=== PATIENT | female | born 1980 | race Caucasian/White ===

== ENCOUNTER → 2017-05-04 | Day surgery (SDC) | payer OTHER ==
[~2017-05-04] VITALS: Ht 165.1 cm; Wt 83.9 kg
[~2017-05-04] MED LIST: CETI10CA PO; Lactated Ringer's 1,000 ML IV SCH; MetoCLOpramide 5 mg/mL 2 mL Inj IVPUSH PRN; Ondansetron 2 mg/mL 2 mL Inj IVPUSH PRN; Propofol 10,000 mCg/mL 20 mL Inj ONE; RANI150T11 PO; SERT25TA2 PO; Sodium Chloride LOK Flush 10 mL Syringe IV PRN; fentaNYL-PF 50 mCg/mL 2 mL Inj IVPUSH PRN
[2017-05-04 09:21] VITALS: BP 122/69; PULSE 65; RESP 16; O2SAT 95
[2017-05-04] MEDS: 0.9% Sodium Chloride 1,000 ML IV SCH ×2 (09:24→09:46)
[2017-05-04 10:27] VITALS: BP 80/42; PULSE 72; RESP 12; O2SAT 96
--- NOTE | 2017-05-04 10:28 | PCM.HPANE ---
Patient Data Surgeon Admitting Provider: Attending Provider:Yasmany Griffith MD Primary Care Physician:Tessie Martinez ARNP Other Provider: Reason for Visit Diarrhea, Gerd Ht/WT & BMI Height (Feet): 5 Height (Inches): 5 Weight (Kilograms): 83.91 Body Mass Index 30.00 Allergies Coded Allergies: oxycodone (Verified Allergy, Severe, FACIAL SWELLING, 05/04/17) tetracycline (Verified Allergy, Severe, rash, 11/30/10) Penicillins (Verified Allergy, Mild, hives, 05/02/17) hydrocodone (Verified Allergy, Mild, ITCH, 05/04/17) hydromorphone (Verified Adverse Reaction, Intermediate, VOMIT, 05/04/17) Past Anesthesia History Anesthesia History: Denies:: Abnormal Airway, Anesthesia Reactions, Difficult Intubation, Fam Anesthesia Reaction, Fam Malignant Hypertherm, Malignant Hyperthermia Diabetes History Hx Diabetes?: No MRSA MRSA: No Medications Hypertension Medication: No Home Meds Incl Beta Jan: No Reported Medications Ranitidine (Zantac)150 Mg [id number] Mg PO DAILY 05/02/17 Sertraline HCl (Zoloft)25 Mg [id number] Mg PO DAILY 30 Days Ref 0 05/02/17 Cetirizine HCl (Zyrtec)10 Mg [id number] Mg PO HS #30 CAPSULE Ref 0 10/02/15 History History of ENT Problems?: Yes HEENT History: Positive for:: Sinus Problem (allergies/stuffy) Denies:: Abnormal Airway Cataracts Difficult Intubation Dysphagia Hearing Problem Denture Type: None Teeth Condition: Within Normal Limits Hx of Heart Problems?: No Cardiovascular History: Positive for:: Heart Murmur Hx of Respiratory Problem?: No Respiratory History: Positive for:: Asthma (rare) Hx Neurologic Problems?: Yes Neurological History: Positive for:: Headaches (from back) Denies:: CVA Hx of GI Problems?: Yes Other GI Pertinent History: MOTHER HAD RENAL CELL CARCINOMA Hx of Problems?: Yes Genitourinary History: Positive for:: Urinary Tract Infection HX of Peritoneal Dialysis: No Female Hx: Denies:: Currently Skin History: Denies:: History Skin Disorders? Hx Musculoskeletal Problems?: Yes Musculoskeletal History: Positive for:: Musculoskeletal Trauma Denies:: Fibromyalgia Joint Replacement Hx of Psycho/Social Problems?: No Psycho Social History: Positive for:: Anxiety Hx Depression Hx Surgeries?: Yes (ARLETH) Hx Any Other Health Problems?: Yes Other History: Denies:: Cancer Endocrine Disease Hospitalization Thyroid Disease History Blood Transfusions: Denies:: Blood Transfusions Hx Diabetes: No Hx Alcohol Use: NoHx Substance Use: No Smoking Status: Unknown if Ever Smoker Stop/Bang Treated for Sleep Apnea?: No Do You Have a CPAP Machine?: No S-Snoring: Do You Snore Loudly: No T-Tired: feel tired, fatigued: No O-Obsered: Observed not breath: No P-Blood Pressure: treated: No B- Body Mass Index > 35 kg/m2: No A- Age over 50: No N- Neck Large Circumference: No G- Gender Male: No PORTILLO Total Score: 0 PORTILLO Risk Assessment: Low Risk, <3 Yes Risk Assessment Category Category 1A: Patient has history of documented sleep apnea, and HAS NOT received any narcotic, sedative or anesthesia administration during this stay. Category 1B: Patient has history of documented sleep apnea, and HAS received any narcotic , sedative or anesthesia administration during this stay Category 2: Patient has SUSPECTED Obstructive Sleep Apnea, and HAS received any narcotic , sedative or anesthesia administration during this stay. Category 3: Patient has SUSPECTED Obstructive Sleep Apnea and HAS NOT received narcotic, sedative or anesthesia administration during this stay. Category 4: Outpatient in Procedural Areas with known sleep apnea or who screen positive for High Risk via the STOP/BANG questionnaire. Exam Exam Vital Signs Vital Signs Date Time Temp Pulse Resp B/P Pulse Ox O2 Delivery O2 Flow Rate FiO2 05/04/17 09:21 65 16 122/69 95 Room Air General Appearance: Alert, Oriented X3, Cooperative, No Acute Distress HEENT/AIRWAY: MP 2 Lungs: Clear to Auscultation, Normal Air Movement Heart: Exam Unremarkable, Regular Rate/Rhythm, No Murmurs/Rubs/Gallops Meds/Labs/Diagnostics Admission Meds Current Medications Sodium Chloride (Normal Saline) 1,000 ml @ 10 mls/hr Q24H IV Last administered on 05/04/17t 09:46; Start 05/04/17 at 06:00 Plan Impression Patient chart reviewed, patient interviewed and anesthestic plan with risks, benefits, and alternatives discussed, and informed consent obtained. ASA Physical Status: ASA1 Normal Healthy Anesthetic Plan: MAC Bene/Risks/Altern/Consents: Yes HP Complete Prior to Induction: Yes Other Called by dr griffith for rescue sedation after patient was unable to tolerate Endoscope for EGD after 7 mg of midazolam. Pt awake and able to sign consent. Ricardo Otoole MD May 04, 2017 10:27
--- NOTE | 2017-05-04 10:32 | PCM.ANEP1 ---
Post Anesthesia PACU Phase 1 Assessment Vital Signs Vital Signs Date Time Temp Pulse Resp B/P Pulse Ox O2 Delivery O2 Flow Rate FiO2 05/04/17 09:21 65 16 122/69 95 Room Air Anesthetic Administered: MAC Level of Alertness: Sleepy, easy to arouse WILSON's with Equal Strength: Yes Pain: No Nausea or Vomiting: No CV Function & Hydration Stable: Yes Airway Device: none Lungs: Clear to Auscultation, Normal Air Movement Dermatome Level: Full Sensation PACU Phase 2 Assessment Complications: No Follow up Care: No Patient Instructions Provided: N/A Ricardo Otoole MD May 04, 2017 10:32
[2017-05-04 10:38] VITALS: BP 94/51; PULSE 64; RESP 12; O2SAT 100
[2017-05-04 10:49] VITALS: BP 104/56; PULSE 59; RESP 12; O2SAT 100
--- NOTE | 2017-05-05 08:51 | ENDO ---
[address] [address] ENDOSCOPY PROCEDURE PATIENT: CHAGO ARCOS : 1980 MR#: [id number] ADMIT: 05/04/2017 JOB ID: [id number] DATE OF SERVICE: 05/04/2017 OPERATION: Esophagogastroduodenoscopy with biopsy. Colonoscopy with biopsy. PREOPERATIVE DIAGNOSIS(ES): Gastroesophageal reflux disease and diarrhea. POSTOPERATIVE DIAGNOSIS(ES): 1. Normal upper endoscopy, several biopsies. 2. Small external hemorrhoids. ANESTHESIA: Monitored anesthesia care. COMPLICATIONS: None. BLOOD LOSS: Minimal. NOTE: This case was converted from conscious sedation to monitored anesthesia care, given the fact the patient received 7 of Versed and has a history of allergies to FENTANYL which causes hypotension. The patient was not sedated while given Versed. DESCRIPTION OF PROCEDURE: After risks and benefits explained to the patient, informed consent was obtained. After anesthesia administered, upper endoscope was inserted into the mouth, intubated the esophagus, stomach, second portion of duodenum. Mucosa carefully examined. After procedure was done, the scope withdrawn and procedure terminated. The colonoscope was inserted from the rectum to the cecum. Mucosa carefully examined. Prep of the patient was good. After procedure, the scope withdrawn and procedure terminated. FINDINGS: Upon inspection of the esophagus, the esophagus was normal. No masses, ulcers, or lesions. Z-line located 40 cm from incisors. Upon entering the stomach, the stomach also normal without masses, ulcers, or lesions. Retroflexion was normal. Duodenal bulb, first and second portion, normal. Biopsy taken of body of distal esophagus. Upon inspection of the anus, there were small external hemorrhoids that were seen. Throughout the entire examination, no polyps or masses were seen. Biopsies taken of the terminal ileum and random colon. Retroflexion was normal. IMPRESSION: 1. Small external hemorrhoids. 2. Normal upper endoscopy, status post biopsy. RECOMMENDATION: Await pathology results. Follow up in GI clinic as needed.
--- NOTE | 2017-05-08 16:58 | PATH ---
SURGICAL PATHOLOGY Attending Physician:Yasmany Griffith MD CASE STATUS: Signed Out PATIENT NAME: CHAGO ARCOS PID: [id number] : 1980 DATE COLLECTED:05/04/2017 21:22 SPECIMEN: 1: Duodenum, Biopsy 2: Stomach, Antrum, Biopsy 3: Gastric, Biopsy 4: Esophagus, Biopsy 5: Ileum, Biopsy 6: Colon, Biopsy CLINICAL HISTORY: GERD, DIARRHEA 1). DUODENUM BIOPSY 2). ANTRUM BIOPSY 3). GASTRIC BODY BIOPSY 4). DISTAL ESOPHAGUS BIOPSY 5). TERMINAL ILEUM BIOPSY 6). RANDOM COLON BIOPSY FINAL DIAGNOSIS: 1. Duodenum, Biopsy: Duodenal mucosa with no diagnostic abnormality. Negative for active inflammation, features of sprue, dysplasia or malignancy. 2. Antrum, Biopsy: Gastric antral mucosa with minimal chronic gastritis. No evidence of Helicobacter organisms on H&E stain. Negative for intestinal metaplasia, dysplasia or malignancy. 3. Gastric Body, Biopsy: Gastric body mucosa with no diagnostic abnormality. No evidence of Helicobacter organisms on H&E stain. Negative for intestinal metaplasia, dysplasia or malignancy. 4. Distal Esophagus, Biopsy: Squamous mucosa with no diagnostic abnormality. Intraepithelial eosinophils are not increased. Negative for dysplasia or malignancy 5. Terminal Ileum, Biopsy: Ileal mucosa with no diagnostic abnormality. Negative for active inflammation, granulomata, dysplasia or malignancy. 6. Random Colon, Biopsy: Colonic mucosa with no diagnostic abnormality. Negative for active or microscopic colitis. Negative for granulomata, dysplasia or malignancy. ICD10: K21.0 R19.7 GROSS DESCRIPTION: The specimen is received in six formalin filled containers labeled with the patient's name. 1). The specimen is labeled "duodenum" and consists of 3 portions of tissue which aggregate to 0.5 x 0.3 x 0.2 CM. The specimen is entirely submitted in cassette 1A. 2). The specimen is labeled "antrum" and consists of a 0.3 x 0.3 x 0.2 CM portion of tissue which is entirely submitted in cassette 2A. 3). The specimen is labeled "gastric body" and consists of 2 portions of tissue which aggregate to 0.2 x 0.2 x 0.1 CM. The specimen is entirely submitted in cassette 3A. 4). The specimen is labeled "distal esophagus" and consists of 2 portions of tissue which aggregate to 0.2 x 0.2 x 0.2 CM. The specimen is entirely submitted in cassette 4A. 5). The specimen is labeled " TI " and consists of 2 portions of tissue which aggregate to 0.4 x 0.2 x 0.2 CM. The specimen is entirely submitted in cassette 5A. 6). The specimen is labeled "random colon" and consists of 3 portions of tissue which aggregate to 0.4 x 0.3 x 0.2 CM. The specimen is entirely submitted in cassette 6A. 05/04/2017AK ICD-9 CODES: CPT CODES: 1: 57876 2: 99742 3: 90591 4: 25663 5: 60112 6: 93885 Electronically Signed Out Manny Kc MD, Ph.D. [facility], [place] [address] Technical component performed at [facility], [facility] [address], [address]
== END | disposition home or self-care (01) ==
LOC: END 00:25
PROVIDERS: ATTEND Internal Medicine Gastroenterology
DX: K29.50 Unspecified chronic gastritis without bleeding (principal); K21.0 Gastro-esophageal reflux disease with esophagitis; K64.4 Residual hemorrhoidal skin tags; R19.7 Diarrhea, unspecified; J45.909 Unspecified asthma, uncomplicated; F41.8 Other specified anxiety disorders
CPT/HCPCS: 43239; 45380; J2250; J2704; J7030